=== PATIENT | female | born 1965 | race Caucasian/White ===

== ENCOUNTER 2025-05-13 06:31 | Emergency (ER) | payer MEDICAID, SELFPAY ==
[2025-05-13 06:32] VITALS: BP 175/99; PULSE 70; RESP 20; TEMP 36.8; O2SAT 100; BMI 25.7
--- NOTE | 2025-05-13 06:56 | PD.EDRME ---
Rapid Medical Screening Exam RME Arrival date/time: 05/13/25 06:31 Chief Complaint: Abdominal Pain Vital signs: Vital Signs Temperature 98.2 F 05/13/25 06:32 Pulse Rate 70 05/13/25 06:32 Respiratory Rate 20 05/13/25 06:32 Blood Pressure 175/99 H 05/13/25 06:32 Pulse Oximetry (%) 100 05/13/25 06:32 Oxygen Delivery Method Room Air 05/13/25 06:32 Pulse ox room air is 100% Vital signs reviewed by provider: Yes [facility] Narrative: 59-year-old female presents to urgent care with a complaint of right flank pain that began 3 days ago. Also complains of intermittent diarrhea described as 1 event with vomiting up to 2-3 events within the last 3 days. As well as nausea. Patient denies abebe abdominal pain. Patient felt clammy and was unable to determine at home if she had a fever.
--- NOTE | 2025-05-13 07:00 | XR_ITS ---
Examination: CT abdomen and pelvis without contrast. Coronal 3-D reconstructions. Sagittal 2-D reconstructions. Date and time of exam:May 13, 2025 0814 hours INDICATIONS: Right-sided flank pain today CTDI: vol (mGy): 7.13 DLP: (mGycm): 383 Technique: Axial images of the abdomen have been obtained, 3 mm slice thickness Intravenous contrast material has not been administered. Low dose protocols were performed. One or more of the following dose reduction techniques were used; automated exposure control, adjustment of the mA and/or KV according to patient size, use of iterative reconstruction technique. Findings: No focal liver lesions No splenic or pancreatic mass Normal adrenal glands Mild right hydronephrosis secondary to 1 mm distal right ureterovesical junction calculus, axial image 195 Aorta normal size No bowel obstruction Normal appendix No bladder mass Anteverted uterus no uterine mass Prominent osteopenia IMPRESSION: Mild right hydronephrosis secondary to 1 mm distal right ureterovesical junction calculus
[2025-05-13] MEDS: ONDANSETRON ODT 4 MG TABRAP PO (07:42)
[2025-05-13 07:45] LABS: Basophils # (Auto) 0.0 Thou/mm3 (0.0-0.2); Basophils % (Auto) 0 % (0-2.5); Eosinophils # (Auto) 0.1 Thou/mm3 (0.0-0.5); Eosinophils % (Auto) 2 % (0-10); Hematocrit 32.5 % (36.0-46.0); Hemoglobin 10.2 g/dL (12.0-16.0); Immature Granulocytes Auto 0.02 Thou/mm3 (0.00-0.00); Lymphocytes # (Auto) 0.9 Thou/mm3 (1.0-4.8); Lymphocytes % (Auto) 13 % (10-50); Mean Corpuscular HGB Conc 31.4 g/dl (31.0-37.0); Mean Corpuscular Hemoglobin 22.0 pg (25.0-35.0); Mean Corpuscular Volume 70 fL (80-100); Monocytes # (Auto) 0.6 Thou/mm3 (0.0-0.8); Monocytes % (Auto) 8 % (0-12); Neutrophils # (Auto) 5.2 Thou/mm3 (1.8-7.7); Neutrophils % (Auto) 77 % (37-80); Nucleated Red Blood Cell # 0.00 Thou/mm3 (0.00-0.00); Nucleated Red Blood Cell % 0 /100 WBC (0); Platelet Count 212 Thou/mm3 (140-440); RDW Standard Deviation 46.6 fL (36.4-46.3); Red Blood Count 4.64 Miln/mm3 (4.00-5.20); White Blood Count 6.8 Thou/mm3 (3.6-11.0)
[2025-05-13 08:05] LABS: Alanine Aminotransferase 27 U/L (10-49); Albumin, Serum 4.2 gm/dL (3.5-5.0); Albumin/Globulin Ratio 1.5 (1.2-2.2); Alkaline Phosphatase 345 U/L (46-116); Anion Gap 8 (7-16); Aspartate Amino Transferase 27 U/L (0-34); BUN/Creatinine Ratio 7 Ratio (12-20); Bilirubin,Total 0.4 mg/dL (0.3-1.2); Blood Urea Nitrogen 6 mg/dL (9-23); Calcium 9.3 mg/dL (8.3-10.6); Calcium (Corrected) 9.3 mg/dL (8.5-10.1); Carbon Dioxide 27.9 mMol/L (20.0-31.0); Chloride 105 mMol/L (98-107); Creatinine (Component) 0.9 mg/dL (0.6-1.3); Estimated Creatinine Clearance 65.4 mL/min (>60); Globulin 2.8 gm/dL (2.3-3.5); Glucose 116 mg/dL (74-106); Lipase 30 U/L (12-53); Osmolality,Calculated 279 (275-295); Potassium 3.4 mMol/L (3.4-5.1); Sodium 141 mMol/L (136-145); Total Protein 7.0 gm/dL (5.7-8.2); eGFR > 60 See Note
[2025-05-13 08:47] VITALS: BP 185/93; PULSE 59; RESP 16; TEMP 36.2; O2SAT 100
[2025-05-13 09:24] LABS: Collection Type, Urine Clean Catch; WBC,Urine 0 /hpf (0-5)
[2025-05-13 09:40] LABS: Amorphous Crystals,Urine Present (Absent); Bilirubin,Urine Negative (Negative); Blood,Urine 3+ (Negative); Budding Yeast,Urine Present; Color,Urine Yellow (Lt Yel-Yel); Glucose, Urine Negative (Negative); Ketones,Urine Negative (Negative); Leukocyte Esterase,Urine Negative (Negative); Nitrite,Urine Negative (Negative); PH,Urine 8.5 (5.0-7.0); Protein,Urine Negative (Neg - Trace); RBC,Urine 317 /hpf (0-3); Specific Gravity,Urine 1.016 (1.001-1.035); Squamous Epithelial Cell,Urine 7 /hpf (0-5); Urobilinogen,Urine Negative mg/dL (0.0-1.0)
[2025-05-13 09:44] LABS: Clarity,Urine Cloudy (Clear/Hazy)
[2025-05-13] MEDS: MORPHINE SULF INJ 10 MG/ML VIAL 4 MG IVP (11:11)
--- NOTE | 2025-05-13 11:11 | XR_ITS ---
Examination: CTA chest, with intravenous contrast. CTA abdomen, with intravenous contrast. CTA pelvis, with intravenous contrast. 2-D sagittal and coronal reconstructions. 3-D reconstructions. Date and time of exam: May 13, 2025 1218 hours COMPARISON: May 13, 2025 INDICATIONS: Right-sided flank pain today, right hydronephrosis 1 mm distal right ureterovesical junction calculus on CT stone study May 13, 2025, chest pain today CTDI vol (mgy) 15.2 DLP (MGycm) 563 Technique: Multiple CTA images, 2.0 mm slice thickness, obtained chest, abdomen, pelvis, with the high-resolution 64 slice scanner. 100 cc Isovue-370 is administered intravenously. Sagittal and coronal 2-D reconstructions are obtained. 3-D reconstructions, angiographic images are obtained. 3-D postprocessing, including vascular maximum intensity projections. Low dose protocols were performed. One or more of the following dose reduction techniques were used; automated exposure control, adjustment of the mA and/or KV according to patient size, use of iterative reconstruction technique. Findings: Enlarged right thyroid with 12 mm right thyroid nodule No thoracic aortic aneurysm dilatation or dissection No pulmonary artery filling defects No paratracheal tracheobronchial or bronchopulmonary adenopathy 12 mm pulmonary nodule left lower lobe No visualized liver lesion No gallstones No pancreatic or adrenal mass Aorta normal size There remains mild right hydronephrosis secondary to 1.5 mm distal right ureterovesical junction calculus No pelvic mass IMPRESSION: Right thyromegaly with 12 mm right thyroid nodule, consider repeat dedicated thyroid sonography follow-up 12 mm pulmonary nodule left lower lobe, with this study is baseline recommend 6 month follow-up CT chest without contrast Negative for thoracic aortic aneurysm dilatation or dissection Negative for pulmonary artery emboli There remains mild right hydronephrosis secondary to 1.5 mm distal right ureterovesical junction calculus
[2025-05-13 11:15] VITALS: BP 134/78; PULSE 70; RESP 14; TEMP 36.5; O2SAT 97
[2025-05-13 12:30] VITALS: BP 145/81; PULSE 79; RESP 18; TEMP 36.4; O2SAT 100
--- NOTE | 2025-05-13 13:07 | PD.EDABDPN ---
ED Abdominal Pain RME/HPI General Chief Complaint: Abdominal Pain Stated complaint: ABD PAIN Time seen by provider: 05/13/25 09:40 Arrival date/time: 05/13/25 06:31 Limitations: no limitations RME / HPI RME / HPI narrative: 59-year-old female presents to urgent care with a complaint of right flank pain that began 3 days ago. Also complains of intermittent diarrhea described as 1 event with vomiting up to 2-3 events within the last 3 days. As well as nausea. Patient denies abebe abdominal pain. Patient felt clammy and was unable to determine at home if she had a fever. DR. KRANTHI SANTIAGO ED EVALUATION 59 year old female presents to the ED for evaluation of abdominal and back pain beginning last night. Described as colicky in sensation that is located most to the right flank, rating as severe. Accompanied by nausea and vomiting. Additionally reports constipation for which she took MiraLAX for yesterday. Followed by one episode of watery stool. Denies fevers, chils, sweats, chest pain, cough, shortness of breath, or urinary symptoms. Related Data Previous Rx's ?Medication ?Instructions ?Recorded ibuprofen 600 mg tablet 600 mg PO Q8H PRN pain #10 tabs 05/13/25 tamsulosin 0.4 mg capsule (Flomax) 0.4 mg PO QDAY #7 caps 05/13/25 Allergies Allergy/AdvReac Type Severity Reaction Status Date / Time No Known Allergies Allergy Verified 05/13/25 06:37 Review of Systems Review of Systems Systems Reviewed: All systems reviewed, normal except as documented Past Medical History Past Medical History CARDIAC: Negative Cardiac Disorders or Congestive Heart Failure RESPIRATORY: Positive Chronic Obstructive Pulmonary Disease (COPD) and Asthma GENITOURINARY: Negative Renal Disease ENDOCRINE: Negative Diabetes Mellitus Type 1 or Diabetes Mellitus Type 2 HEMATOLOGIC: Negative Sickle Cell Disease Social History SMOKING STATUS: Current some day smoker ED Exam General Limitations: Present no limitations General appearance: Present alert and in no apparent distress Head Head exam: Present atraumatic Eye Eye exam: Present normal appearance, PERRL and EOMI ENT ENT exam: Present normal exam, normal oropharynx and mucous membranes moist Neck Neck exam: Present normal inspection, full ROM and trachea midline Chest Chest inspection: Present normal inspection and symmetric chest wall rise Respiratory Respiratory exam: Present normal lung sounds bilaterally Cardiovascular Cardiovascular exam: Present regular rate, normal rhythm and normal heart sounds Abdominal Exam Abdominal exam: Present soft, normal bowel sounds and other (right flank tenderness to palpation ); Absent guarding or rebound Extremities Exam Extremities exam: Present normal inspection, full ROM and other (2+ radial and DP pulses bilaterally, symmetrical ) Back Exam Back exam: Present full ROM and other (right flank tenderness ) Neurological Exam Neurological exam: Present alert, oriented X3 and CN II-XII intact Psychiatric Psychiatric exam: Present normal affect and normal mood Skin Skin exam: Present warm, dry, intact and normal color Course Quality Measures none Orders Category Date Time Status CT Screening NOW Care 05/13/25 11:[address] Screening NOW Care 05/13/25 11:[address] Screening NOW Care 05/13/25 11:[address] abdomen pelvis wo con Stat Exams 05/13/25 07:[address] angio chest abdomen pelvis Stat Exams 05/13/25 11:11 Completed CBC Stat Lab 05/13/25 07:24 Completed Comprehensive Metabolic Panel Stat Lab 05/13/25 07:24 Completed Lipase Stat Lab 05/13/25 07:24 Completed Urinalysis Stat Lab 05/13/25 08:45 Completed Morphine Inj Med 05/13/25 11:00 Discontinued 4 mg IVP NOW ONE Ondansetron Odt [Zofran Odt] Med 05/13/25 07:00 Discontinued 4 mg PO X1 ONE Vital Signs Vital signs: Vital Signs Temperature 98.2 F 05/13/25 06:32 Pulse Rate 70 05/13/25 06:32 Respiratory Rate 20 05/13/25 06:32 Blood Pressure 175/99 H 05/13/25 06:32 Pulse Oximetry (%) 100 05/13/25 06:32 Oxygen Delivery Method Room Air 05/13/25 06:32 Pulse ox is 100% on room air which is adequate. Abdominal Pain MDM MDM Narrative MDM Narrative:: IMarielena am scribing for and in the presence of Dr. Jamison. Patient data External records reviewed:: [facility] previous records (I reviewed ED visit on 09/13/2022 ) Clinical information provided by:: patient Social determinants that could affect healthcare access:: other (specify) (Active tobacco smoker ) Patient has the following chronic illnesses:: None reported How is presenting disease/condition affected by chronic disease/condition?: no chronic disease Evaluation data The following diagnostics were reviewed and interpreted by me:: lab results and radiology exam(s) Lab and/or radiology exams considered but not ordered:: None Interpretation Summary: Ordering Physician: Young Fierro PA-C Date of Service: 05/13/25 Procedure(s): CT abdomen pelvis wo con Accession Number(s): [id number] cc: Wilder Mancia MD; Bhavin Bower MD; Young Fierro PA-C~ Examination: CT abdomen and pelvis without contrast. Coronal 3-D reconstructions. Sagittal 2-D reconstructions. Date and time of exam:May 13, 2025 0814 hours INDICATIONS: Right-sided flank pain today CTDI: vol (mGy): 7.13 DLP: (mGycm): 383 Technique: Axial images of the abdomen have been obtained, 3 mm slice thickness Intravenous contrast material has not been administered. Low dose protocols were performed. One or more of the following dose reduction techniques were used; automated exposure control, adjustment of the mA and/or KV according to patient size, use of iterative reconstruction technique. Findings: No focal liver lesions No splenic or pancreatic mass Normal adrenal glands Mild right hydronephrosis secondary to 1 mm distal right ureterovesical junction calculus, axial image 195 Aorta normal size No bowel obstruction Normal appendix No bladder mass Anteverted uterus no uterine mass Prominent osteopenia IMPRESSION: Mild right hydronephrosis secondary to 1 mm distal right ureterovesical junction calculus Dictated By: Bhavin Bower MD Signed By: <Electronically signed by Bhavin Bower MD in OV> 05/13/25 0858 Ordering Physician: Sabina Jamison MD Date of Service: 05/13/25 Procedure(s): CT angio chest abdomen pelvis Accession Number(s): [id number] cc: Wilder Mancia MD; Bhavin Bower MD; Sabina Jamison MD~ Examination: CTA chest, with intravenous contrast. CTA abdomen, with intravenous contrast. CTA pelvis, with intravenous contrast. 2-D sagittal and coronal reconstructions. 3-D reconstructions. Date and time of exam: May 13, 2025 1218 hours COMPARISON: May 13, 2025 INDICATIONS: Right-sided flank pain today, right hydronephrosis 1 mm distal right ureterovesical junction calculus on CT stone study May 13, 2025, chest pain today CTDI vol (mgy) 15.2 DLP (MGycm) 563 Technique: Multiple CTA images, 2.0 mm slice thickness, obtained chest, abdomen, pelvis, with the high-resolution 64 slice scanner. 100 cc Isovue-370 is administered intravenously. Sagittal and coronal 2-D reconstructions are obtained. 3-D reconstructions, angiographic images are obtained. 3-D postprocessing, including vascular maximum intensity projections. Low dose protocols were performed. One or more of the following dose reduction techniques were used; automated exposure control, adjustment of the mA and/or KV according to patient size, use of iterative reconstruction technique. Findings: Enlarged right thyroid with 12 mm right thyroid nodule No thoracic aortic aneurysm dilatation or dissection No pulmonary artery filling defects No paratracheal tracheobronchial or bronchopulmonary adenopathy 12 mm pulmonary nodule left lower lobe No visualized liver lesion No gallstones No pancreatic or adrenal mass Aorta normal size There remains mild right hydronephrosis secondary to 1.5 mm distal right ureterovesical junction calculus No pelvic mass IMPRESSION: Right thyromegaly with 12 mm right thyroid nodule, consider repeat dedicated thyroid sonography follow-up 12 mm pulmonary nodule left lower lobe, with this study is baseline recommend 6 month follow-up CT chest without contrast Negative for thoracic aortic aneurysm dilatation or dissection Negative for pulmonary artery emboli There remains mild right hydronephrosis secondary to 1.5 mm distal right ureterovesical junction calculus Dictated By: Bhavin Bower MD Signed By: <Electronically signed by Bhavin Bower MD in OV> 05/13/25 1301 Medications / Prescriptions Medications or Prescriptions considered but not ordered:: None Medication administrations:: Medication Administration History Discontinued Medications Morphine Sulfate (Morphine Sulf Inj 10 Mg/Ml Vial) 4 mg IVP NOW ONE Stop: 05/13/25 11:01 Last Admin: 05/13/25 11:11 Dose: 4 mg Documented By: EF Ondansetron HCl (Ondansetron Odt 4 Mg Tabrap) 4 mg PO X1 ONE; Protocol Stop: 05/13/25 07:01 Last Admin: 05/13/25 07:42 Dose: 4 mg Documented By: EF See above Consultations Consultation(s) initiated? (list below): No Diagnosis Differential diagnosis abdominal pain: abdominal pain, calculus of kidney, diverticulitis, small bowel obstruction and other (AAA ) Most likely diagnosis given after review of the tests above:: Kidney stone Incidental lung nodule Admission Indicated Admission indicated?: not indicated Admission Request Was there a request for admission?: No Disposition Plan Disposition Plan: Discharge Discharge Attestation Discharge Attestation: The patient and all family members were given an opportunity to ask questions and understood the discharge instructions. Discharge instructions specifically effects, indications for sooner follow up or return to the emergency department, and the expected course of current diagnosis. Patient condition: Stable Discharge Plan Plan Patient Disposition: HOME (Self Care) Patient condition on transfer: Stable Prescriptions/Referrals Prescriptions/Med Rec: New ibuprofen 600 mg tablet 600 mg PO Q8H PRN (Reason: pain) Qty: 10 0RF tamsulosin [Flomax] 0.4 mg capsule 0.4 mg PO QDAY Qty: 7 0RF Referrals: Wilder Mancia MD [Primary Care Provider] - In 1 week Problem List Clinical Impression: Kidney stone, Incidental lung nodule Patient/Caregiver Discharge Instructions Education Materials: Hematuria: Possible Causes, ED Kidney Stone w/ Colic Additional Instructions: Please hydrate well, you can use ibuprofen for pain. Please follow-up with your primary care doctor, and request evaluation with a urologist for management of your 1.5 mm kidney stone. Return immediately if you develop worsening symptoms, fever or any other symptom of concern. Print Language: Wolof Stand Alone Forms: Caitlin Award Info., Patient Portal Info Letter
[2025-05-13 13:52] VITALS: BP 143/85; PULSE 95; RESP 15; O2SAT 99
== END 2025-05-13 14:05 | disposition home or self-care (01) ==
PROVIDERS: Physician Assistant; Emergency Provider Emergency Medicine; PCP Family Medicine
DX: N13.2 Hydronephrosis with renal and ureteral calculous obstruction (principal); R91.1 Solitary pulmonary nodule; E04.1 Nontoxic single thyroid nodule
CPT/HCPCS: 36415; 71275; 74174; 74176; 80053; 81001; 83690; 85025; 96374; 99283; A4649; J2270; Q0162; Q9967